=== PATIENT | male | born 1990 | race Caucasian/White ===

== ENCOUNTER 2016-12-29 04:23 | Emergency (ER) | payer OTHER ==
[~2016-12-29] VITALS: Ht 170.2 cm; Wt 77.1 kg
--- NOTE | 2016-12-29 05:18 | NUR ---
SENT TO CT VIA W/C.
--- NOTE | 2016-12-29 05:42 | NUR ---
AMBULATORY W/ STEADY GAIT TO RESTROOM, NAD NOTED.
--- NOTE | 2016-12-29 05:48 | NUR ---
Dr. Murguia at bedside for application sutures lt eyelid lacerations.
[2016-12-29] MEDS ORDERED: LIDOCAINE /MPF 1% VIAL 5 ML VIAL ONE (05:49)
--- NOTE | 2016-12-29 06:38 | NUR ---
Sutures to lt eyelid lacerations intact w/ wound edges well approximated, no active bleeding noted. pt tolerated procedures well w/ nad noted.
--- NOTE | 2016-12-29 06:45 | NUR ---
Patient discharged to home in stable condition. Written and verbal after care instructions given. Patient verbalizes understanding of instruction.
--- NOTE | 2016-12-29 06:45 | NUR ---
Dr. Bermeo at bedside for update on pt status.
[2016-12-29 06:49] VITALS: BP 146/87
== END 2016-12-29 06:49 | disposition home or self-care (01) ==
LOC: ER 04:29
DX: S02.2XXA Fracture of nasal bones, initial encounter for closed fracture (principal); S05.32XA Ocular laceration without prolapse or loss of intraocular tissue, left eye, initial encounter; S01.112A Laceration without foreign body of left eyelid and periocular area, initial encounter; Y04.2XXA Assault by strike against or bumped into by another person, initial encounter; Y93.89 Activity, other specified; Y92.89 Other specified places as the place of occurrence of the external cause; Y99.9 Unspecified external cause status
CPT/HCPCS: 12013; 70486; 99284; A4606; A6402 ×2; J3490; Z7610

== ENCOUNTER 2018-12-21 10:32 | Emergency (ER) | payer OTHER ==
[~2018-12-21] VITALS: Ht 170.2 cm; Wt 63.5 kg
--- NOTE | 2018-12-21 10:42 | NUR ---
PT CAME INTO THE ED C/O RECTAL BLEED FOR 4 DAYS. PT [id number], VSS, BREATHING EVEN AND UNLABORED ON ROOM AIR W/ NO ACUTE DISTRESS NOTED, AMBULATORY. PT CONNECTED TO THE MONITOR AND WILL CONTINUE TO MONITOR.
--- NOTE | 2018-12-21 10:50 | NUR ---
AT BEDSIDE FOR EVAL
[2018-12-21] MEDS ORDERED: HYDROMORPHONE 1 MG/1 ML DISP.SYRIN ONE (11:07)
[2018-12-21] MEDS ORDERED: KETOROLAC TROMETHAMINE INJ 30 MG/ML VIAL ONE (11:07)
[2018-12-21] MEDS ORDERED: HYDROMORPHONE INJ 0.5 MG/0.5 ML SYRINGE IM ONE (11:30)
[2018-12-21] MEDS ORDERED: KETOROLAC TROMETHAMINE INJ 30 MG/ML VIAL IM ONE (11:30)
--- NOTE | 2018-12-21 11:40 | NUR ---
Patient discharged to home in stable condition. Written and verbal after care instructions given. Patient verbalizes understanding of instruction.
[2018-12-21 11:41] VITALS: BP 148/87
== END 2018-12-21 11:42 | disposition home or self-care (01) ==
LOC: ER 10:32
DX: K64.9 Unspecified hemorrhoids (principal); K62.5 Hemorrhage of anus and rectum
CPT/HCPCS: 96372 ×2; 99283; J1170; J1885